=== PATIENT | male | born 1970 | race Caucasian/White ===

== ENCOUNTER 2018-08-31 01:30 | Observation (INO) ==
[2018-08-31] MEDS ORDERED: Aspirin 325 MG TABLET PO ONE (01:42)
--- NOTE | 2018-08-31 01:44 | Emergency Department Note ---
Disposition Clinical Impression: Elevated blood pressure reading Chest pain Qualifiers: Chest pain type: unspecified Qualified Code(s): R07.9 - Chest pain, unspecified Disposition: Admitted As Inpatient Condition: Fair Time of Disposition: 02:53 Chest Pain HPI - General Stated Complaint: cp Time Seen by Provider: 08/31/18 01:34 Source: patient Mode of arrival: ambulatory Limitations: no limitations Vital Signs Reviewed: Yes Nursing Notes Reviewed: Yes - History of Present Illness HPI Narrative: 48-year-old male with a history of hypertension, diabetes presents for evaluation of chest pain. Patient states they have been having difficulty managing his elevated blood pressure over the past 2 weeks. States that they recently upped his medications which include Hydrocort diet as well as losartan last week. Patient states he woke up approximately an hour and half prior to ED arrival for chest pain. States the chest pain did wake him up out of sleep. Noted to be retrosternal across his chest with some radiation to his back. Patient denies any nausea vomiting. Patient does admit to some diaphoresis as he woke up in his pillow is wet. Denies any fevers or cough. Denies history of heart attacks. States he does have a stress test scheduled in the upcoming weeks. - Related Data Allergies Allergy/AdvReac Type Severity Reaction Status Date / Time No Known Allergies Allergy Verified 08/20/18 15:21 All systems ED: reviewed and negative except as stated. Constitutional: Denies: fever Cardiovascular: Reports: chest pain. Denies: palpitations Respiratory: Denies: cough, dyspnea Gastrointestinal: Denies: abdominal pain, nausea, vomiting Chest Pain PMH - Past Medical History Medical history: Reports: COPD, hyperlipidemia, hypertension Psychiatric history: Reports: no psych history - Social History Smoking Status: Never smoker Alcohol use: Reports: occasionally Drug use: Reports: none Physical Exam - General Limitations: no limitations General appearance: alert, in no apparent distress - Head Head exam: atraumatic, normocephalic, normal inspection - Eye Eye exam: Present: normal appearance, PERRL, EOMI - ENT ENT exam: normal exam, normal oropharynx, mucous membranes moist - Neck Neck exam: Present: normal inspection - Chest Chest inspection: Present: normal inspection, symmetric chest wall rise - Respiratory Respiratory exam: Present: normal lung sounds bilaterally. Absent: respiratory distress - Cardiovascular Cardiovascular exam: Present: regular rate, normal rhythm. Absent: systolic murmur - Abdominal Exam Abdominal exam: Present: soft, Non-Tender - Extremities Exam Extremities exam: Present: normal inspection. Absent: pedal edema - Back Exam Back exam: Present: normal inspection - Neurological Exam Neurological exam: Present: alert, oriented X3, CN II-XII intact - Skin Skin exam: Present: warm, dry, intact, normal color Course Course Narrative: Patient seen and examined. Patient's triage blood pressures high. 190 systolic. Patient will get basic cardia pulmonary screening evaluation with EKG chest x-ray and troponin. Patient also be treated with nitroglycerin and aspirin. Disposition pending. - Reevaluation(s) Reevaluation #1: Patient chest pain resolved after 1 nitro. Time: 02:08 Reevaluation #2: Resting comfortably. Time: 02:54 Vital Signs Temperature 97.9 F 08/31/18 01:47 Pulse Rate 77 08/31/18 01:47 Respiratory Rate 18 08/31/18 01:47 Blood Pressure 190/119 08/31/18 01:47 O2 Sat by Pulse Oximetry 99 08/31/18 01:47 Temperature 98 F 08/31/18 01:48 Pulse Rate 90 08/31/18 02:48 Respiratory Rate 18 08/31/18 02:48 Blood Pressure 159/114 08/31/18 02:48 O2 Sat by Pulse Oximetry 99 08/31/18 02:48 Oxygen Delivery Oxygen Delivery Room Air Chest Pain - MDM Narrative Medical decision making narrative: Patient presents for concerns of chest pain. Chest pain did wake him up in the middle the night. Describes chest pain with relation of the back. Retrosternal. Arrival the patient was hypertensive. Patient does have risk factors for ACS. Patient's pain was relieved with one nitroglycerin. Patient's EKG and initial troponin was unremarkable. Patient will be admitted for further evaluation and serial testing. Patient is agreeable with this plan of care. On repeat evaluation in the ED the patient is resting currently. Blood pressures improved. Symptoms are not consistent with aortic dissection or PE. - Lab Data Lab results reviewed: Yes I reviewed the patient's lab results. Result diagrams: 08/31/18 01:44 08/31/18 01:44 Lab Results 08/31/18 08/31/18 08/31/18 Range/Units 01:34 01:34 01:44 WBC 8.0 (4.3-11.1) K/mcL RBC 5.35 (4.19-5.50) M/mcL Hgb 15.8 (12.9-16.9) g/dL Hct 45.8 (37.5-50.1) % MCV 85.6 (83.0-100.0) fL MCH 29.5 (28.0-33.3) pg MCHC 34.5 (31.6-35.5) g/dL RDW 12.8 (11.5-14.5) % Plt Count 259 (140-400) K/mcL MPV 10.2 (9.4-12.4) fL Immature Gran % 0.4 (0-4) % Seg Neutrophils % 62.2 % Lymphocytes % 22.6 % Monocytes % 7.8 % Eosinophils % 6.2 % Basophils % 0.8 % Neutrophils # 5.0 (1.6-8.9) K/mcL Lymphocytes # 1.8 (0.6-4.6) K/mcL Monocytes # 0.6 (0.0-1.3) K/mcL Eosinophils # 0.5 (0.0-0.6) K/mcL Basophils # 0.1 (0.0-0.2) K/mcL PT 11.8 (9.4-12.1) Seconds INR 1.0 Sodium (136-145) mEq/L Potassium (3.5-5.1) mEq/L Chloride (98-107) mEq/L Carbon Dioxide (23-29) mEq/L BUN (6-20) mg/dL Creatinine (0.70-1.30) mg/dL Est GFR ( Amer) (> 60) Est GFR (Non-Af Amer) (> 60) BUN/Creatinine Ratio (6-26) Glucose (70-105) mg/dL Calculated Osmolality (280-300) Calcium (8.6-10.3) mg/dL Troponin I (< 0.04) ng/mL B-Natriuretic Peptide 8 (Less than 100) pg/mL 08/31/18 Range/Units 01:44 WBC (4.3-11.1) K/mcL RBC (4.19-5.50) M/mcL Hgb (12.9-16.9) g/dL Hct (37.5-50.1) % MCV (83.0-100.0) fL MCH (28.0-33.3) pg MCHC (31.6-35.5) g/dL RDW (11.5-14.5) % Plt Count (140-400) K/mcL MPV (9.4-12.4) fL Immature Gran % (0-4) % Seg Neutrophils % % Lymphocytes % % Monocytes % % Eosinophils % % Basophils % % Neutrophils # (1.6-8.9) K/mcL Lymphocytes # (0.6-4.6) K/mcL Monocytes # (0.0-1.3) K/mcL Eosinophils # (0.0-0.6) K/mcL Basophils # (0.0-0.2) K/mcL PT (9.4-12.1) Seconds INR Sodium 140 (136-145) mEq/L Potassium 3.6 (3.5-5.1) mEq/L Chloride 104 (98-107) mEq/L Carbon Dioxide 27 (23-29) mEq/L BUN 14 (6-20) mg/dL Creatinine 1.11 (0.70-1.30) mg/dL Est GFR ( Amer) > 60 (> 60) Est GFR (Non-Af Amer) > 60 (> 60) BUN/Creatinine Ratio 13 (6-26) Glucose 103 (70-105) mg/dL Calculated Osmolality 291 (280-300) Calcium 10.1 (8.6-10.3) mg/dL Troponin I < 0.03 (< 0.04) ng/mL B-Natriuretic Peptide (Less than 100) pg/mL - Radiology Data Radiology results reviewed: Yes I reviewed the patient's radiology results. Chest X-Ray 08/31/18 01:34 IMPRESSION: No acute cardiopulmonary disease. D/ / Иван Lew MD / Иван Lew MD Interpreting Provider: Иван Lew MD - EKG Data EKG attestation: Yes I reviewed and interpreted this EKG. EKG shows normal: sinus rhythm Rate: normal Rhythm: NSR Hamer/QRS: left axis deviation T wave inversions noted in: aVR, v1 When compared to previous EKG there are: no significant changes Interpretation: no acute changes Heart Score - Score History: Moderately Suspicious EKG: Non Specific repolarisation Disturbance Age: 45-65 Risk Factors: 1-2 risk factors Troponin: Less than normal limit HEART Score Total: 4 S.B.A.R. - S.B.A.R. Situation: Demographics Background: Presenting Complaint Assessment: Vital Signs, Course and respsone to treatment, Patient/Family Expectation Recommendation: Barrier(s) to disposition, Recommendation based on pending studies, treatments, or consults S.B.A.R. Report Given to: Dr. Mcclellan SEladioB.AMargarette Repor Time: 02:58 Attestation Statement - Attestation Attestation: I examined this patient and my medical decision-making was reviewed with the Resident Physician. I agree with the documented findings, disposition and treatment plan as described except to the extent set forth below. Atypical chest pain. Initial cardiac biomarkers are negative. We will admit for serial troponins as well as cardiac consultation. Heart score is greater than 3.
[2018-08-31] MEDS: Nitroglycerin 0.4 MG TAB.SUBL SL PRN ×2 (01:58→20:44)
[2018-08-31 02:01] LABS: Hematocrit 45.8 % (37.5-50.1); Hemoglobin 15.8 g/dL (12.9-16.9); Immature Granulocytes % 0.4 % (0-4); Lymphocytes % 22.6 %; Mean Corpuscular HGB Conc 34.5 g/dL (31.6-35.5); Mean Corpuscular Hemoglobin 29.5 pg (28.0-33.3); Mean Corpuscular Volume 85.6 fL (83.0-100.0); Mean Platelet Volume 10.2 fL (9.4-12.4); Monocytes % 7.8 %; Platelet Count 259 K/mcL (140-400); Red Blood Count 5.35 M/mcL (4.19-5.50); Red Cell Distribution Width 12.8 % (11.5-14.5); Segmented Neutrophils % 62.2 %
[2018-08-31 02:02] LABS: Basophils # 0.1 K/mcL (0.0-0.2); Basophils % 0.8 %; Eosinophils # 0.5 K/mcL (0.0-0.6); Eosinophils % 6.2 %; Lymphocytes # 1.8 K/mcL (0.6-4.6); Monocytes # 0.6 K/mcL (0.0-1.3)
[2018-08-31 02:09] LABS: Prothrombin Time 11.8 Seconds (9.4-12.1)
[2018-08-31 02:23] LABS: BUN/Creatinine Ratio 13 (6-26); Blood Urea Nitrogen 14 mg/dL (6-20); Calcium 10.1 mg/dL (8.6-10.3); Carbon Dioxide 27 mEq/L (23-29); Chloride 104 mEq/L (98-107); Glucose 103 mg/dL (70-105); Osmolality,Calculated 291 (280-300); Potassium 3.6 mEq/L (3.5-5.1); Sodium 140 mEq/L (136-145); eGFR For Non-African Americans > 60 (> 60)
[2018-08-31 02:24] LABS: Troponin I < 0.03 ng/mL (< 0.04)
--- NOTE | 2018-08-31 07:50 | Internal Med History&Physical ---
Date of Encounter: 08/31/18 Time of Encounter: 07:50 Internal Medicine - H&P: HPI Chief complaint: CP History of present illness: 48-year-old male with a history of hypertension, diabetes presents for evaluation of retrosternal across his chest with some radiation to his back associated with diaphoresis. Patient denies any nausea vomiting, fevers or cough. He also reported uncontrolled HTN. He is scheduled for stress test on Thursday. He admitted for further evaluation. Past Med Surg Social Fam HX - Past Medical History Medical history: COPD, hyperlipidemia, hypertension Psychiatric history: no psych history - Past Surgical History Surgical History: no surgical history - Social History Smoking Status: Never smoker Smokeless Tobacco Status: No Alcohol use: occasionally Drug use: none - Family History Father Living Status: Age at : 53 Cause of : [place] Mother Living Status: Still Living Hx Family Cardiac Disorders: Yes (AFIB) Internal Medicine - H&P: Meds RX: Atorvastatin Calcium [Lipitor] 20 mg PO DAILY 08/31/18 [History] RX: Esomeprazole Magnesium [Nexium] 40 mg PO DAILY 08/31/18 [History] RX: Meloxicam 7.5 mg PO DAILY 08/31/18 [History] RX: Losartan [Cozaar] 25 mg PO DAILY #30 tablet 09/01/18 [Rx] RX: amLODIPine [Norvasc] 5 mg PO DAILY #30 tablet 09/01/18 [Rx] Allergy/AdvReac Type Severity Reaction Status Date / Time No Known Allergies Allergy Verified 08/20/18 15:21 All Systems PM: A 10-system review of systems was performed and is negative for pertinent findings except as documented above in the HPI. - Constitutional Constitutional: no chills, no fever(s), no night sweats - Cardiovascular Cardiovascular ROS IM: chest pain, diaphoresis, no dyspnea, no lightheadedness, no palpitations, no syncope - Respiratory Respiratory: no cough, no dyspnea, no wheezing, no excessive phlegm production - Gastrointestinal Gastrointestinal: no abdominal pain, no diarrhea, no hematemesis, no hematochezia, no melena, no nausea, no vomiting - Neurological Neurological ROS: no confusion, no convulsions, no focal weakness, no numbness, no tingling, no tremor(s) - Constitutional Vitals: Temp Pulse Resp BP Pulse Ox 97.8 F 60 17 137/81 97 08/31/18 06:43 08/31/18 06:43 08/31/18 06:43 08/31/18 06:43 08/31/18 06:43 General appearance: Present: A&O X 3 Exam: awake - Head Head exam: Present: atraumatic, normocephalic - Neck Neck exam general surgery: Present: supple, trachea midline. Absent: lymphadenopathy - Respiratory Respiratory exam: Present: CTAB. Absent: accessory muscle use, rales, rhonchi, wheezes - Cardiovascular Cardiovascular exam: Present: RRR, +S1, +S2. Absent: diastolic murmur, gallop, rubs, systolic murmur - Extremities Exam Extremities exam: Present: warm, radial pulses palpable and symmetrical. Absent: calf tenderness, cyanotic, pedal edema Internal Med - H&P Results - Labs CBC & Chem 7: 09/01/18 05:30 09/01/18 05:30 Labs: Short CBC 08/31/18 Range/Units 01:44 WBC 8.0 (4.3-11.1) K/mcL Hgb 15.8 (12.9-16.9) g/dL Hct 45.8 (37.5-50.1) % Plt Count 259 (140-400) K/mcL Neutrophils # 5.0 (1.6-8.9) K/mcL BMP 08/31/18 01:44 Sodium 140 Potassium 3.6 Chloride 104 Carbon Dioxide 27 BUN 14 Creatinine 1.11 Glucose 103 Calcium 10.1 Cardiac Enzymes 08/31/18 Range/Units 01:44 Troponin I < 0.03 (< 0.04) ng/mL - Impressions ITS Impressions Chest X-Ray 08/31/18 01:34 IMPRESSION: No acute cardiopulmonary disease. D/ / Иван Lew MD / Иван Lew MD Interpreting Provider: Иван Lew MD - Assessment and plan (1) Chest pain Status: Suspected Assessment and plan: ASSESSMENT: - Chest pain r/o CAD - cardiac enzymes x 2 q 8 hr - EKG now and in AM - ASA - O2 by NC to keep SpO2 greater than 92% - UA - CBCD, BMP in AM - Fasting lipids - Tylenol 650 mg PO q 4-6 hr PRN headache - Home meds (check list) - Heparin 5000 U SQ BID - 2D Echo Qualifiers: Chest pain type: chest pain due to myocardial ischemia Qualified Code(s): I25.9 - Chronic ischemic heart disease, unspecified (2) Elevated blood pressure reading Status: Acute (3) Diabetes mellitus Status: Acute Assessment and plan: Hx of DM Diet controlled off meds Qualifiers: Diabetes mellitus type: type 2 Diabetes mellitus halfway insulin use: without assistant terminal manager use Diabetes mellitus complication status: without complication Qualified Code(s): E11.9 - Type 2 diabetes mellitus without complications (4) Hypertension Status: Chronic Assessment and plan: Uncontrolled BP 190/119 on admission. BP runs 150-160's/110's at home. We will continue home meds. cardiology is adjusting the current regimen, appreciate t hier input. Qualifiers: Hypertension type: essential hypertension Qualified Code(s): I10 - Essential (primary) hypertension (5) DVT prophylaxis Status: Acute - Time Spent With Patient Total time spent is greater than 50% in coordination of care (as documented) at patient's floor/unit and/or counseling patient:
[2018-08-31] MEDS ORDERED: hydroCHLOROthiazide 25 MG TABLET PO SCH (09:00)
[2018-08-31] MEDS ORDERED: Acetaminophen 325 MG TABLET PO PRN (09:35)
[2018-08-31] MEDS ORDERED: Naloxone 0.4 MG/ML INJ IVP PRN (09:35)
[2018-08-31 10:47] LABS: Chol/HDL Ratio 2.8 (0-4.9)
--- NOTE | 2018-08-31 16:05 | Cardiology Consult Note ---
Date of Encounter: 08/31/18 (n) Time of Encounter: 16:03 Assessment and Plan (1) Elevated blood pressure reading Current Visit: Yes Status: Acute DC hydrochlorothiazide and decrease losartan to 50 mg daily. We will start Norvasc 2.5 mg and titrate as tolerated (2) Chest pain Current Visit: Yes Status: Acute Atypical chest pain however in setting of strong family history of coronary artery disease and multiple cardiac risk factors we will proceed with a chemical stress test rule out ischemia and an echocardiogram to rule out structural heart abnormalities Qualifiers: Chest pain type: other chest pain Qualified Code(s): R07.89 - Other chest pain; R07.8 - Other chest pain Discussion w patient/family: The assessment and plan as outlined above was discussed with the patient and/or family members who expressed understanding and agreement. All questions were answered. Thank you for involving us in the care of your patient. Please call with any questions. History of Present Illness Consult date: 08/31/18 Consult reason: rach pain, hypertensive urgency Chief complaint: Chest pain and high BP History of present illness: Mr. Saha is a 48 year old male with history of hyperlipidemia, hypertension presents due to chest pain. Patient describes a sharp stabbing retrosternal chest discomfort which last a few seconds at a time and resolve spontaneously. This is associated with a headache and he noted his systolic blood pressure to be about 200 mmHg. He has a strong family history of coronary artery disease with his ongoing episodes of chest pain he is concerned and presented to the emergency department for further evaluation. Cardiac markers were unremarkable EKG is unremarkable. In the setting of a significant family history of coronary artery disease and multiple cardiac risk factors I do believe a chemical stress test is reasonable. We will also decrease his losartan to 50 mg once daily and start Norvasc 2.5 mg. We will also hold his HCTZ and hopefully we can improve control of his blood pressure. Past Med Surg Social Fam HX - Past Medical History Medical history: COPD, hyperlipidemia, hypertension Psychiatric history: no psych history - Past Surgical History Surgical History: no surgical history - Social History Smoking Status: Never smoker Smokeless Tobacco Status: No Alcohol use: occasionally Drug use: none - Family History Mother Living Status: Still Living Hx Family Cardiac Disorders: Yes (AFIB) Father Living Status: Age at : 53 Cause of : ID Medications and Allergies Atorvastatin Calcium [Lipitor] 20 mg PO DAILY 08/31/18 [History] Esomeprazole Magnesium [Nexium] 40 mg PO DAILY 08/31/18 [History] Losartan Potassium [Cozaar] 100 mg PO DAILY 08/31/18 [History] Meloxicam 7.5 mg PO DAILY 08/31/18 [History] hydroCHLOROthiazide [Hydrochlorothiazide] 12.5 mg PO DAILY 08/31/18 [History] Allergy/AdvReac Type Severity Reaction Status Date / Time No Known Allergies Allergy Verified 08/20/18 15:21 All Systems Review: The remainder of the systems were reviewed and are negative Physical Examination Vital Signs, Last 4 Hours Temp Pulse Resp BP Pulse Ox 08/31/18 15:30 97.6 F 77 18 138/91 95 08/31/18 12:07 98.6 F 69 16 132/90 97 General: Conversant, No Apparent Distress HEENT: Atraumatic, Normocephaly, Mucus Membranes Moist Neck: No JVD, Normal carotid pulses Cardiac: Reg Rate and Rhythm, Normal S1 and S2, No Murmur Lungs: Normal Breath Sounds, No Wheeze, Rales, Rhonchi Neuro: Alert and responsive, No focal deficits noted Abdomen: Soft, Non-Tender Skin: No rashes noted on visualized skin Musculoskeletal: No Chest Wall Tenderness Extremities: No Clubbing, No Cyanosis, No Edema, Normal Pulses Results 08/31/18 01:44 08/31/18 01:44 Lab Results 08/31/18 08/31/18 08/31/18 01:34 01:34 01:44 WBC 8.0 Hgb 15.8 Hct 45.8 Plt Count 259 INR 1.0 Sodium Potassium Chloride Carbon Dioxide BUN Creatinine Glucose Calcium Troponin I B-Natriuretic Peptide 8 08/31/18 08/31/18 01:44 09:53 WBC Hgb Hct Plt Count INR Sodium 140 Potassium 3.6 Chloride 104 Carbon Dioxide 27 BUN 14 Creatinine 1.11 Glucose 103 Calcium 10.1 Troponin I < 0.03 < 0.03 B-Natriuretic Peptide Consult Discharge Plan - Plan Referrals: Clifton Juarez MD [Primary Care Provider] - 09/20/18 1:00 pm
[2018-09-01] MEDS: *HR* Heparin 5,000 UNIT/ML VIAL SQ SCH ×2 (05:37→14:00)
[2018-09-01] MEDS ORDERED: Regadenoson 0.4 MG/5 ML SYRINGE IVP ONE (05:48)
[2018-09-01 05:59] LABS: Basophils # 0.1 K/mcL (0.0-0.2); Basophils % 0.8 %; Eosinophils # 0.5 K/mcL (0.0-0.6); Eosinophils % 7.5 %; Hemoglobin 14.9 g/dL (12.9-16.9); Immature Granulocytes % 0.3 % (0-4); Lymphocytes # 1.4 K/mcL (0.6-4.6); Lymphocytes % 21.5 %; Mean Corpuscular HGB Conc 33.9 g/dL (31.6-35.5); Mean Corpuscular Hemoglobin 29.2 pg (28.0-33.3); Mean Corpuscular Volume 86.3 fL (83.0-100.0); Mean Platelet Volume 10.2 fL (9.4-12.4); Monocytes # 0.6 K/mcL (0.0-1.3); Monocytes % 9.2 %; Neutrophils # 3.9 K/mcL (1.6-8.9); Platelet Count 243 K/mcL (140-400); Red Cell Distribution Width 12.9 % (11.5-14.5); Segmented Neutrophils % 60.7 %
[2018-09-01 06:25] LABS: Alanine Aminotransferase 37 Units/L (7-52); Albumin 4.4 g/dL (3.5-5.7); Albumin/Globulin Ratio 1.9 (1.1-2.2); Alkaline Phosphatase 64 Units/L (34-104); Aspartate Amino Transferase 18 Units/L (13-39); BUN/Creatinine Ratio 15 (6-26); Bilirubin,Total 0.4 mg/dL (0.3-1.0); Blood Urea Nitrogen 15 mg/dL (6-20); Calcium 9.5 mg/dL (8.6-10.3); Carbon Dioxide 27 mEq/L (23-29); Chloride 107 mEq/L (98-107); Globulin 2.3 g/dL (2.4-3.5); Glucose 101 mg/dL (70-105); Magnesium 2.1 mg/dL (1.6-2.6); Osmolality,Calculated 291 (280-300); Phosphorous 3.2 mg/dL (2.7-4.5); Potassium 4.2 mEq/L (3.5-5.1); Sodium 140 mEq/L (136-145); Total Protein 6.7 g/dL (6.4-8.9); eGFR For Non-African Americans > 60 (> 60)
--- NOTE | 2018-09-01 08:08 | Cardiology Progress Note ---
Date of Encounter: 09/01/18 Time of Encounter: 08:05 Assessment and Plan (1) Elevated blood pressure reading Current Visit: Yes Status: Acute Uncontrolled HTN on admission. Hydrochlorothiazide discontinued and losartan decreased to 50 mg daily. Norvasc started. B/p improved overnight. Elevated b/p during stress test due to patient being NPO with no meds. Continue to monitor. (2) Chest pain Current Visit: Yes Status: Acute Atypical chest pain however in setting of strong family history of coronary artery disease and multiple cardiac risk factors. Troponin negative x3. EKG with no ST changes. Possible WMA seen on echo but considered poor study. We will repeat with definity. Stress test pending. Qualifiers: Chest pain type: other chest pain Qualified Code(s): R07.89 - Other chest pain; R07.8 - Other chest pain Discussion w patient/family: The assessment and plan as outlined above was discussed with the patient and/or family members who expressed understanding and agreement. All questions were answered. Thank you for involving us in the care of your patient. Please call with any questions. Subjective Principal diagnosis: chest pain, HTN Interval history: Mr. Saha was seen in the stress lab. C/o chest pain at 7:30 pm last night and he was given one SL NTG with relief. B/p improved overnight. Objective Vital Signs, Last 4 Hours Pulse Ox 09/01/18 06:21 97 General: Conversant, No Apparent Distress HEENT: Atraumatic, Normocephaly, Mucus Membranes Moist Neck: No JVD, Normal carotid pulses Cardiac: Reg Rate and Rhythm, Normal S1 and S2, No Murmur Lungs: Normal Breath Sounds, No Wheeze, Rales, Rhonchi Neuro: Alert and responsive, No focal deficits noted Abdomen: Soft, Non-Tender Skin: No rashes noted on visualized skin Musculoskeletal: No Chest Wall Tenderness Extremities: No Clubbing, No Cyanosis, No Edema, Normal Pulses Results 09/01/18 05:30 09/01/18 05:30 Lab Results 08/31/18 08/31/18 08/31/18 09:53 15:53 21:26 WBC Hgb Hct Plt Count Sodium Potassium Chloride Carbon Dioxide BUN Creatinine Glucose Calcium Magnesium Total Bilirubin AST ALT Alkaline Phosphatase Troponin I < 0.03 < 0.03 < 0.03 09/01/18 09/01/18 05:30 05:30 WBC 6.4 Hgb 14.9 Hct 44.0 Plt Count 243 Sodium 140 Potassium 4.2 Chloride 107 Carbon Dioxide 27 BUN 15 Creatinine 1.03 Glucose 101 Calcium 9.5 Magnesium 2.1 Total Bilirubin 0.4 AST 18 ALT 37 Alkaline Phosphatase 64 Troponin I - Imaging and Cardiology Echo: report reviewed Cardiac cath: pending Consult Discharge Plan - Plan Referrals: Clifton Juarez MD [Primary Care Provider] - 09/20/18 1:00 pm
--- NOTE | 2018-09-01 08:41 | Internal Med Progress Note ---
<Willie Lew - Last Filed: 09/01/18 12:56> Hospitalist Progress Note - Encounter Date of Encounter: 09/01/18 Time of Encounter: 10:45 - Subjective Interval History: Laying comfortably in bed. Had 1 episode of chest pain last night that resolved with 1 sl nitro. Had stress test this morning and had chest pain during. No chest pain, sob, diaphoresis, ROJAS, N/V since. - Exam Vitals: Temp Pulse Resp BP Pulse Ox 98 F 71 16 126/80 97 09/01/18 03:33 09/01/18 03:33 09/01/18 03:33 09/01/18 03:33 09/01/18 06:21 Exam: General: Awake, alert, no acute distress or signs of toxicity HEENT: Atraumatic, normocephaly, mucus membranes moist Chest: Symmetric chest rise, non tender Cardiac: RRR, S1/S2+, no murmur, rubs, gallops appreciated. No edema. Lungs: Normal effort, CTAB, no wheeze, rales, rhonchi, diminishment appreciated Neuro: CN grossly intact, no focal deficits Abdomen: Soft, non-tender, non distended, no rigidity, rebound, guarding Skin: Keller, warm, dry, intact Extremities: No cyanosis, radial pulses 2+ bilateral - Assessment and Plan (1) Chest pain Status: Acute Assessment and Plan: -Admitted for ACS ruloe out. -ECHO 55% 08/31/18 -Had 1 episode chest pain last night that resolved with 1 sl nitro. -Had chest pain during stress test this morning. -Cards following and appreciate their recs. -Awaiting stress test results. (2) Hypertension Status: Acute Assessment and Plan: -BP 190/119 on admission -BP runs 150-160's/110's at home. -Latest BP 133/90 -Cards dc home hctz, and decreased home losartan and added 2.5mg amlodipine to titrate up. (3) Diabetes mellitus Status: Acute Assessment and Plan: Hx of DM -Glucose wnl on no meds DVT Prophylaxis: Chemical with heparin - Time Spent with Patient Total time spent is greater than 50% in coordination of care (as documented) at patient's floor/unit and/or counseling patient: less than 15 minutes Plan of Care Discussed with: patient Internal Medicine: Result - Labs CBC & Chem 7: 09/01/18 05:30 09/01/18 05:30 Labs: Short CBC 09/01/18 Range/Units 05:30 WBC 6.4 (4.3-11.1) K/mcL Hgb 14.9 (12.9-16.9) g/dL Hct 44.0 (37.5-50.1) % Plt Count 243 (140-400) K/mcL Neutrophils # 3.9 (1.6-8.9) K/mcL BMP 09/01/18 05:30 Sodium 140 Potassium 4.2 Chloride 107 Carbon Dioxide 27 BUN 15 Creatinine 1.03 Glucose 101 Calcium 9.5 Cardiac Enzymes 08/31/18 08/31/18 08/31/18 Range/Units 09:53 15:53 21:26 Troponin I < 0.03 < 0.03 < 0.03 (< 0.04) ng/mL Liver Function 09/01/18 Range/Units 05:30 Total Bilirubin 0.4 (0.3-1.0) mg/dL AST 18 (13-39) Units/L ALT 37 (7-52) Units/L Alkaline Phosphatase 64 (34-104) Units/L Albumin 4.4 (3.5-5.7) g/dL - ABG Interpretation ABG results: PT/INR, D-dimer PT 11.8 Seconds (9.4-12.1) 08/31/18 01:34 - Impressions Impressions Echocardiogram 08/31/18 12:41 Impressions: LVEF 55%. Normal LV chamber size, wall thickness and function. Mildly dilated right ventricle with mild hypokinesis. No significant valvular dysfunction. Unable to estimate RVSP due to lack of TR jet. Recommend repeated limited Echo with definity for focal wall motion Consult Discharge Plan - Plan Instructions: Amlodipine (By mouth), Losartan (By mouth), Chest Pain (DC), Chronic Hypertension (DC) Referrals: Clifton Juarez MD [Primary Care Provider] - 09/20/18 1:00 pm Prescriptions: RX: amLODIPine [Norvasc] 5 mg PO DAILY #30 tablet RX: Losartan [Cozaar] 25 mg PO DAILY #30 tablet <Grupo Dwyer - Last Filed: 09/01/18 18:42> Hospitalist Progress Note - Exam Vitals: Temp Pulse Resp BP Pulse Ox 98.1 F 68 16 133/90 100 09/01/18 10:17 09/01/18 10:17 09/01/18 10:17 09/01/18 10:17 09/01/18 10:17 - Assessment and Plan (1) Chest pain Status: Acute (2) Diabetes mellitus Status: Acute (3) Hypertension Status: Acute - Time Spent with Patient Total time spent is greater than 50% in coordination of care (as documented) at patient's floor/unit and/or counseling patient: Internal Medicine: Result - Labs CBC & Chem 7: 09/01/18 05:30 09/01/18 05:30 Labs: Short CBC 09/01/18 Range/Units 05:30 WBC 6.4 (4.3-11.1) K/mcL Hgb 14.9 (12.9-16.9) g/dL Hct 44.0 (37.5-50.1) % Plt Count 243 (140-400) K/mcL Neutrophils # 3.9 (1.6-8.9) K/mcL BMP 09/01/18 05:30 Sodium 140 Potassium 4.2 Chloride 107 Carbon Dioxide 27 BUN 15 Creatinine 1.03 Glucose 101 Calcium 9.5 Cardiac Enzymes 08/31/18 Range/Units 21:26 Troponin I < 0.03 (< 0.04) ng/mL Liver Function 09/01/18 Range/Units 05:30 Total Bilirubin 0.4 (0.3-1.0) mg/dL AST 18 (13-39) Units/L ALT 37 (7-52) Units/L Alkaline Phosphatase 64 (34-104) Units/L Albumin 4.4 (3.5-5.7) g/dL - ABG Interpretation ABG results: PT/INR, D-dimer PT 11.8 Seconds (9.4-12.1) 08/31/18 01:34 - Impressions Impressions Echocardiogram 08/31/18 12:41 Impressions: LVEF 55%. Normal LV chamber size, wall thickness and function. Mildly dilated right ventricle with mild hypokinesis. No significant valvular dysfunction. Unable to estimate RVSP due to lack of TR jet. Recommend repeated limited Echo with definity for focal wall motion Echocardiogram Limited Views 09/01/18 08:03 Impressions: Limited Echo for LVEF and wall motion with definity. LVEF 65%. - Attending Attestation Please see discharge summary of this date. 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 Diabetes mellitus complication status: without complication Qualified Code(s): E11.9 - Type 2 diabetes mellitus without complications <Grupo Dwyer - Last Filed: 09/01/18 18:42> (1) Chest pain Qualifiers: Chest pain type: other chest pain Qualified Code(s): R07.89 - Other chest pain; R07.8 - Other chest pain (2) Diabetes mellitus Qualifiers: Diabetes mellitus type: type 2 Diabetes mellitus [facility] insulin use: wi thout 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
[2018-09-01] MEDS ORDERED: Perflutren Lipid Microsphere 1.3 ML in 0.9 % Sodium Chloride 8.7 ML IVP ONE (08:58)
[2018-09-01] MEDS ORDERED: NON-FORMULARY MEDICATION 1 EACH EACH (Esomeprazole Magnesium [Nexium] 40 MG) PO SCH (09:00)
[2018-09-01] MEDS ORDERED: amLODIPine 5 MG TABLET PO SCH (09:00)
[2018-09-01 10:20] VITALS: BP 133/90
[2018-09-01] MEDS ORDERED: amLODIPine 5 MG TABLET PO ONE (13:50)
--- NOTE | 2018-09-01 14:36 | Discharge Summary ---
<Adam Walker - Last Filed: 09/01/18 15:28> - NOTES TO OUTPATIENT PROVIDER Notes to Outpatient Provider: Patient admitted for chest pain workup. Stress test completed and found to be negative for ischemia and had mild small fixed apical perfusion defect is likely an artifact. Echocardiogram was repeated with definity and no WMA seen. EF preserved. B/p meds were adjusted by cardiology, Rx given for Losartan to 25 mg daily and Norvasc to 5 mg daily. Recommend out-pt f/u with cardiology in 4-6 weeks. Date of Encounter: 09/01/18 Time of Encounter: 14:15 - Discharge Diagnosis (1) Chest pain Priority: Primary Status: Acute Assessment and Plan: Admitted for ACS rule out. 08/31/18 ECHO 55% Chest pain resolved with 1 sl nitro. Regadenoson Nuclear Stress Impression: No ischemia or infarct on perfusion study. Mild small fixed apical perfusion defect is likely an artifact. Stress LVEF 63 %. No ischemic stress ECG findings. 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 BP runs 150-160's/110's at home. Hydrochlorothiazide discontinued and losartan decreased to 250 mg daily by cardiology. Norvasc 5mg daily started. B/p improved. Continue to monitor. Qualifiers: Hypertension type: essential hypertension Qualified Code(s): I10 - Essential (primary) hypertension Hospital course: Mr. Saha is a 48 year old male with a past medical history of diet-controlled diabetes mellitus type 2, HLD, and poorly controlled hypertension who presented to the ED complaining of chest pain. Patient reported a sharp stabbing retrosternal chest discomfort which last a few seconds at a time and resolved wi th 1 sl nitro. CP was associated with a headache. He has a strong family history of coronary artery disease. Cardiac markers were unremarkable and EKG was unremarkable. Patient was admitted for chest pain workup given significant family history of coronary artery disease and multiple cardiac risk factors. His BP was 190/119 on admission. BP runs 150-160's/110's at home while taking Hydrochlorothiazide and Losartan. ECHO revealed preserved EF 55%. Cardiology evaluated the patient and and recommended a tress test. Stress test was negative for ischemia and had mild small fixed apical perfusion defect is likely an artifact. Echocardiogram was repeated with definity and no WMA seen. Nuclear Stress revealed no ischemia or infarct on perfusion study or stress ECG findings, mild small fixed apical perfusion defect is likely an artifact. Stress LVEF 63 %. B/p meds were adjusted by cardiology, Rx given for Losartan to 25 mg daily and Norvasc to 5 mg daily. Recommend out-pt f/u with cardiology in 4-6 weeks. Discharge discussed with: patient, family, nurse - Time Spent with Patient Total time spent providing and/or coordinating discharge services: - Discharge Medications Prescriptions: RX: amLODIPine [Norvasc] 5 mg PO DAILY #30 tablet RX: Losartan [Cozaar] 25 mg PO DAILY #30 tablet Home Medications: RX: Atorvastatin Calcium [Lipitor] 20 mg PO DAILY 08/31/18 [History] RX: Esomeprazole Magnesium [Nexium] 40 mg PO DAILY 08/31/18 [History] RX: Meloxicam 7.5 mg PO DAILY 08/31/18 [History] RX: Losartan [Cozaar] 25 mg PO DAILY #30 tablet 09/01/18 [Rx] RX: amLODIPine [Norvasc] 5 mg PO DAILY #30 tablet 09/01/18 [Rx] Allergies/Adverse Reactions: Allergy/AdvReac Type Severity Reaction Status Date / Time No Known Allergies Allergy Verified 08/20/18 15:21 Date of admission: 08/31/18 03:12 Primary care physician: Clifton Juarez MD Consults: 08/31/18 08:24 Consult to Cardiology [CONS] Routine Comment: Consulting Provider: Chris Fox Reason for Consult: CP Time Notified: 08:25 Call Completed: No Discharging clinician: Grupo Dwyer Anticipated date of discharge: 09/01/18 - Constitutional Vitals: Temp Pulse Resp BP Pulse Ox 98.1 F 68 16 133/90 100 09/01/18 10:17 09/01/18 10:17 09/01/18 10:17 09/01/18 10:17 09/01/18 10:17 General appearance: Present: cooperative, A&O X 3, pleasant, no acute distress, obese, answers questions appropriately Exam: awake - Head Head exam: Present: atraumatic, normocephalic - Eye Eye exam: Present: EOMI, conjuntiva pink, sclera anicteric - ENT ENT exam: Present: mucous membranes moist, normal oropharynx - Neck Neck exam general surgery: Present: supple, trachea midline. Absent: lymphadenopathy - Respiratory Respiratory exam: Present: CTAB. Absent: accessory muscle use, rales, rhonchi, wheezes - Cardiovascular Cardiovascular exam: Present: RRR, +S1, +S2. Absent: diastolic murmur, gallop, rubs, systolic murmur - GI/Abdominal GI/Abdominal exam: Present: normal bowel sounds, soft, no peritoneal signs. Absent: distended, tenderness - Extremities Exam Extremities exam: Present: warm, radial pulses palpable and symmetrical. Absent: calf tenderness, cyanotic, pedal edema - Back Exam Back exam: Present: normal inspection. Absent: paraspinal tenderness, tendern ess - Neurological Exam Neurological exam: Present: CN II-XII intact, oriented X3, no focal deficits. Absent: pronater drift, facial droop, speech deficit - Psychiatric Psychiatric exam: Present: normal affect, normal mood - Skin Skin exam: Present: dry, intact, warm - Patient Status Disposition: Home, Self-Care Condition: Fair Functional capacity at discharge: independent ambulation Overall status at discharge: patient is back to baseline - Discharge Instructions Instructions: Amlodipine (By mouth), Losartan (By mouth), Chest Pain (DC), Chronic Hypertension (DC) Follow Up With: Clifton Juarez MD [Primary Care Provider] - 09/20/18 1:00 pm - Diet and Activity Activity: increase activity as tolerated Diet: diabetic diet, regular diet (cardiac) <Grupo Dwyer - Last Filed: 09/01/18 18:47> Orders not resulted at time of discharge: Pending orders 09/01/18 08:00 NM joao perf SPECT multi [NM] Routine - Discharge Diagnosis (1) Chest pain Priority: Primary Status: Suspected Qualifiers: Chest pain type: chest pain due to myocardial ischemia (2) Diabetes mellitus Status: Acute Qualifiers: Diabetes mellitus type: type 2 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 Saha is a 48 year old male - Time Spent with Patient Total time spent providing and/or coordinating discharge services: Date of admission: 08/31/18 03:12 Primary care physician: Clifton Juarez MD Consults: 08/31/18 08:24 Consult to Cardiology [CONS] Routine Comment: Consulting Provider: Cardiology Dominique Reason for Consult: CP Time Notified: 08:25 Call Completed: No - Constitutional Vitals: Temp Pulse Resp BP Pulse Ox 98.1 F 68 16 133/90 100 09/01/18 10:17 09/01/18 10:17 09/01/18 10:17 09/01/18 10:17 09/01/18 10:17 - Attending Attestation I examined this patient and my medical decision-making was reviewed with the Resident Physician on 09/01/18. I agree with the documented findings, disposition and treatment plan as described except to the extent set forth below. Mr Saha has been in observation for chest pain and HTN. He had negative stress test. His BP has improved and he is afebrile and pain free. Exam alert Comfortable Mucus membranes dry Not tachycardic No wheeze Plan D/C home today.
[2018-09-02] MEDS ORDERED: amLODIPine 5 MG TABLET PO SCH (09:00)
--- NOTE | 2018-09-04 18:58 | Electrocardiograph Report ---
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
--- NOTE | 2018-09-04 21:49 | Electrocardiograph Report ---
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
== END 2018-09-01 15:07 | disposition home or self-care (01) ==
LOC: 3BNU 01:30 → EMEROOARM 01:30 → SUATTDRO 03:12 → 3BNU 04:00
PROVIDERS: ADMIT Pediatrics; ATTEND Internal Medicine